=== PATIENT | male | born 1955 | race Caucasian/White ===

== ENCOUNTER → 2017-07-07 | Outpatient (CLI) | payer OTHER ==
--- NOTE | 2017-07-07 14:24 | MRI ---
MRI pelvis without contrast INDICATION: Thigh pain x1 month TECHNIQUE: Noncontrast MR imaging pelvis FINDINGS: Heterogeneous nodular appearing prostate gland. Mild bladder wall trabeculation. Multilevel degenerative disc disease and spondylosis lower lumbar spine. Mild osteoarthrosis of the hips. No osteonecrosis or fracture noted. Signal artifact is noted over both hips. Small area of high signal in the lesser trochanter left hip nonaggressive in appearance possibly small nonaggressive fibro-osseous bone lesion or small hemangioma. Nonspecific appearance. Degenerative labral changes in both hips. Moderate edema between the left greater trochanteric bursa and the iliotibial tract indicating friction edema/bursitis. Minimal interstitial fissuring and tendinopathy of the bilateral proximal hamstring tendons without rupture or distal retraction. IMPRESSION: No fracture or focal destructive lesion. Small nonaggressive appearing bone lesion in the left lesser trochanter Left greater trochanteric bursal edema extending to the iliotibial tract Bilateral proximal hamstring tendinopathy without ivette rupture or distal retraction Degenerative disc disease and spondylosis lower lumbar spine Electronically signed by: Tawanda Ashby MD 07/07/2017 2:23 PM [facility]
--- NOTE | 2017-07-07 14:29 | MRI ---
MRI left thigh without contrast INDICATION: Thigh strain myofascial and tendon injury TECHNIQUE: Noncontrast MR imaging left thigh FINDINGS: No mass or drainable fluid collection noted. There is motion degradation limiting fine detail. The study is diagnostic however. Scattered fatty marbling of the muscle bellies in the thigh. No definitive focal mass or Inflammation. No tendon rupture. Visualized portions sciatic nerve are unremarkable. IMPRESSION: No acute derangement left thigh Electronically signed by: Tawanda Ashby MD 07/07/2017 2:28 PM [employer]
== END ==
LOC: MRI 08:05
PROVIDERS: ATTEND Orthopaedic Surgery
DX: S76.912D Strain of unspecified muscles, fascia and tendons at thigh level, left thigh, subsequent encounter (principal); M25.552 Pain in left hip

== ENCOUNTER → 2017-07-09 | Outpatient (CLI) | payer OTHER | LOC: LAB.O 10:08 | PROVIDERS: ATTEND Orthopaedic Surgery | DX: S76.912D Strain of unspecified muscles, fascia and tendons at thigh level, left thigh, subsequent encounter (principal) ==

== ENCOUNTER → 2017-08-13 | Outpatient (CLI) | payer OTHER | LOC: GMAJ 10:32 | PROVIDERS: ATTEND Family Medicine | DX: Z12.5 Encounter for screening for malignant neoplasm of prostate (principal); I10 Essential (primary) hypertension ==

== ENCOUNTER → 2018-03-29 | Outpatient (CLI) | payer OTHER | LOC: SL 19:15 | PROVIDERS: ATTEND Family Medicine | DX: G47.33 Obstructive sleep apnea (adult) (pediatric) (principal); I10 Essential (primary) hypertension ==

== ENCOUNTER 2020-02-25 08:09 | Emergency (ER) | payer MEDICARE, OTHER ==
--- NOTE | 2020-02-25 08:41 | RAD ---
EXAM DESCRIPTION: Hand,Right 3 Views (accession [id number]), Wrist,Right 3 Views (accession [id number]) CLINICAL HISTORY: 64 years Male thenar pain,fall COMPARISON: None TECHNIQUE: AP, lateral and oblique views of the right hand as well as AP, oblique and lateral views of the right wrist are obtained. FINDINGS: OSSEOUS: There is mild deformity of the proximal first metacarpal bone consistent with a mildly impacted fracture with some associated soft tissue swelling.. There is no evidence of subluxation or dislocation. The joint spaces are preserved. Mild marginal osteophytosis noted in the DIP joints, interphalangeal joint of the thumb and first CMC joint consistent with multifocal mild primary osteoarthritis There is no evidence of marginal erosive changes to suggest an inflammatory arthritis. SOFT TISSUE: There is mild focal soft tissue swelling along the dorsum of the hand along the proximal metacarpal region and wrist. No evidence of significant soft tissue calcifications. No radiopaque foreign bodies. IMPRESSION: There is mild deformity of the proximal first metacarpal bone consistent with a mildly impacted fracture. Remainder of findings as described above. Electronically signed by: Kira Rainey MD 02/25/2020 8:39 AM CDT
--- NOTE | 2020-02-25 08:41 | RAD ---
EXAM DESCRIPTION: Hand,Right 3 Views (accession [id number]), Wrist,Right 3 Views (accession [id number]) CLINICAL HISTORY: 64 years Male thenar pain,fall COMPARISON: None TECHNIQUE: AP, lateral and oblique views of the right hand as well as AP, oblique and lateral views of the right wrist are obtained. FINDINGS: OSSEOUS: There is mild deformity of the proximal first metacarpal bone consistent with a mildly impacted fracture with some associated soft tissue swelling.. There is no evidence of subluxation or dislocation. The joint spaces are preserved. Mild marginal osteophytosis noted in the DIP joints, interphalangeal joint of the thumb and first CMC joint consistent with multifocal mild primary osteoarthritis There is no evidence of marginal erosive changes to suggest an inflammatory arthritis. SOFT TISSUE: There is mild focal soft tissue swelling along the dorsum of the hand along the proximal metacarpal region and wrist. No evidence of significant soft tissue calcifications. No radiopaque foreign bodies. IMPRESSION: There is mild deformity of the proximal first metacarpal bone consistent with a mildly impacted fracture. Remainder of findings as described above. Electronically signed by: Kira Rainey MD 02/25/2020 8:39 AM CDT
--- NOTE | 2020-02-25 08:47 | ED.PDOC ---
History of Present Illness - General Chief Complaint: Trauma Stated Complaint: R hand/thumb injury r/t fall on outstretched arm Time Seen by Provider: 02/25/20 08:14 - History of Present Illness Initial Comments: 64 yo RHD male was walking in dark last night, misstep and fell forward into metal wall. FOOSH, type mechanism. Occurred 11 hours ago. Comes in with thenar pain. no significant numbness or tingling. denies any other injuries, did not hit head, no loc. denies any blood thinners. states pain is 4/10 Allergies/Adverse Reactions: Allergies NO KNOWN ALLERGY Allergy (Verified 02/25/20 08:28) Home Medications: Ambulatory Orders Lisinopril & Hydrochlorothiazi [Zestoretic 20-25 mg] 1 tab PO DAILY 03/08/14 Review of Systems - Review of Systems Constitutional: Denies: chills, fever EENTM: Denies: blurred vision, double vision Respiratory: Denies: cough, short of breath Cardiology: Denies: chest pain, palpitations Gastrointestinal/Abdominal: Denies: abdominal pain, nausea, vomiting Genitourinary: Denies: frequency Skin: Denies: change in color, rash Neurological: Denies: headache, numbness, paresthesia, tingling, tremors, weakness Endocrine: Denies: unexplained weight loss Hematologic/Lymphatic: Denies: easy bleeding, easy bruising Past Medical History (General) - Patient Medical History Hx Seizures: No Hx Stroke: No Hx Asthma: No Hx of COPD: No Hx Cardiac Disorders: No Hx Congestive Heart Failure: No Hx Pacemaker: No Hx Hypertension: Yes Hx Diabetes: No Hx Cancer: No Hx of HIV: No Hx Hepatitis C: No Hx MRSA: No Surgical History: other - Vaccination History Hx Tetanus, Diphtheria Vaccination: No Hx Influenza Vaccination: Yes Hx Pneumococcal Vaccination: No - Social History Hx Tobacco Use: No Hx Chewing Tobacco Use: No Hx Alcohol Use: Yes Hx Substance Use: No Hx Substance Use Treatment: No Hx Depression: No Hx Physical Abuse: No Hx Emotional Abuse: No Hx Suspected Abuse: No - Female History Patient is a Female of Child Bearing Age (10 -59 yrs old): No Patient : No Family Medical History - Family History Father Living Status: Hx Family Asthma: Yes Hx Family Hypertension: Yes Hx Family Cancer: Yes Hx Family;Other: mother had lung cancer dad had copd Mother Living Status: Hx Family Cancer: Yes Physical Exam - Physical Exam General Appearance: Alert, Comfortable, No apparent distress, Well Developed, Well Groomed, Well Hydrated, Well Nourished Neck: non-tender, full range of motion, supple, normal inspection Cardiovascular/Respiratory: regular rate, rhythm, no M/R/G, normal peripheral pulses, normal breath sounds Abdominal Exam: non-tender, no organomegaly Back Exam: normal inspection, no CVA tenderness, no vertebral tenderness Shoulder Exam: normal inspection, non-tender, no evidence of injury, normal ROM Elbow/Forearm Exam: normal inspection, non-tender, no evidence of injury, normal ROM Wrist Exam: normal inspection, non-tender, no evidence of injury, normal ROM Hand Exam: swelling - thenar tenderness, Neuro/Tendon: normal sensation, normal motor functions, normal tendon functions, no evidence tendon injury Mental Status: alert, oriented x 3 Skin Exam: normal color, warm/dry Comments: Symmetrically palpable radial and ulnar pulses. Capillary refill <2 seconds to all digits. Intact sensation to light touch of the radial, median and ulnar nerves demonstrated by testing in the dorsal web space of the thumb, the distal palmar aspect of the index finger, and the lateral surface of the fifth finger. 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 move thumb fully through opposition, abduction and flexion, pain with movement. No snuffbox tenderness. Progress - Progress Progress: 02/25/20 08:53 partial ddx: hand/wrist sprain, carpal dislocation/fracture, MCP fracture. xray shows base of 1st MCP impacted fracture, soft tissue swelling. A thumb spica splint placed. 02/25/20 08:54 The data reviewed when caring for this patient included: nurse notes etc. The history and assessments from nurses notes were reviewed and considered, and the patient's home medication list was also reviewed and considered. My assessment and the results of testing completed here in the ED were discussed with the patient. All questions were answered, and he express understanding of my assessment and the plan. He has been instructed to return if their symptoms worsen, and have been asked to follow up with their primary care physician and orthopedics to recheck today's presenting complaint. return precautions given. Carmen Ford DO #[id number] Departure - Departure Clinical Impression: Metacarpal bone fracture Qualifiers: Encounter type: initial encounter Metacarpal bone: first Fracture type: closed Metacarpal location: base Fracture morphology: unspecified fracture morphology Fracture alignment: nondisplaced Laterality: right Qualified Code(s): S62.234A - Other nondisplaced fracture of base of first metacarpal bone, right hand, initial encounter for closed fracture Time of Disposition: 08:46 Disposition: Discharge to Home or Self Care Departure Forms: ED Discharge - Pt. Copy, Patient Portal Self Enrollment Instructions: DI for Trauma, Hand Fracture (DC), Splint Care Referrals: Elia Menchaca MD [Primary Care Provider] - 1-2 Weeks Colton Spring MD [Active Staff] - 1 Week Home Medications: Ambulatory Orders Lisinopril & Hydrochlorothiazi [Zestoretic 20-25 mg] 1 tab PO DAILY 03/08/14
[2020-02-25 09:03] VITALS: BP 146/74; TEMP 96.6; O2SAT 92
== END 2020-02-25 09:01 | disposition home or self-care (01) ==
LOC: ER 08:09
DX: S62.234A Other nondisplaced fracture of base of first metacarpal bone, right hand, initial encounter for closed fracture (principal); I10 Essential (primary) hypertension; W01.198A Fall on same level from slipping, tripping and stumbling with subsequent striking against other object, initial encounter; Y93.01 Activity, walking, marching and hiking; Y92.9 Unspecified place or not applicable

== ENCOUNTER → 2020-03-04 | Outpatient (CLI) | payer MEDICARE, OTHER ==
--- NOTE | 2020-03-04 13:31 | RAD ---
EXAM DESCRIPTION: Hand,Right 3 Views CLINICAL HISTORY: 64 years Male, HAND PAIN RIGHT COMPARISON: February 25, 2020 Findings: 3 view(s)/radiograph(s) Similar alignment of the right hand first metacarpal base fracture. No significant interval healing identified. Osteopenia. No new fracture. No dislocation. Similar degenerative changes. IMPRESSION: Similar alignment of the right first metacarpal base fracture. Electronically signed by: Romulo Ho MD 03/04/2020 1:29 PM CDT
== END ==
LOC: RAD 09:54
PROVIDERS: ATTEND Orthopaedic Surgery
DX: S62.234D Other nondisplaced fracture of base of first metacarpal bone, right hand, subsequent encounter for fracture with routine healing (principal)

== ENCOUNTER → 2020-03-14 | Outpatient (CLI) | payer MEDICARE, OTHER ==
--- NOTE | 2020-03-14 17:21 | RAD ---
EXAM DESCRIPTION: Hand,Right 3 Views CLINICAL HISTORY: CLOSED FRACTURE OF METACARPAL BONE RIGHT COMPARISON: 04 March 2020 TECHNIQUE: 3 views right FINDINGS: Distal interphalangeal joint arthritis is observed throughout the hand. Mild degenerative changes are observed in the metacarpal carpal articulation of the first digit. A fracture of the base of the first medical carpal is observed. Alignment is unchanged from the previous exam. No new injury is detected. No significant callus formation is yet evident. IMPRESSION: A fracture of the base of the first metacarpal is again noted. No significant interval change is seen. Electronically signed by: John Crawley MD 03/14/2020 5:20 PM CDT
== END ==
LOC: RAD 08:06
PROVIDERS: ATTEND Orthopaedic Surgery
DX: S62.234D Other nondisplaced fracture of base of first metacarpal bone, right hand, subsequent encounter for fracture with routine healing (principal)

== ENCOUNTER → 2020-04-04 | Outpatient (CLI) | payer MEDICARE, OTHER ==
--- NOTE | 2020-04-05 08:11 | RAD ---
EXAM DESCRIPTION: Hand,Right 3 Views CLINICAL HISTORY: CLOSED FRACTURE OF METACARPAL BONE COMPARISON: March 14, 2020 IMPRESSION: 3 views of the right hand shows diffuse osteopenia the osseous structures. Minimally displaced fracture at the base of the first metacarpal is again seen with increased periosteal reaction and mild callus formation compatible with healing fracture. Fracture does not obviously extend to the articular surface. No significant angulation of the fracture fragments is seen. Mild narrowing of the interphalangeal and metacarpophalangeal joints is seen with minimal joint line osteophytes compatible with mild osteoarthritic changes. Electronically signed by: Kai Herrera MD 04/05/2020 8:09 AM [facility]
== END ==
LOC: RAD 08:59
PROVIDERS: ATTEND Orthopaedic Surgery
DX: S62.231D Other displaced fracture of base of first metacarpal bone, right hand, subsequent encounter for fracture with routine healing (principal); M24.849 Other specific joint derangements of unspecified hand, not elsewhere classified; M25.841 Other specified joint disorders, right hand; M25.741 Osteophyte, right hand

== ENCOUNTER → 2020-05-03 | Outpatient (CLI) | payer MEDICARE, OTHER ==
--- NOTE | 2020-05-04 11:10 | RAD ---
EXAM: Hand,Right 3 Views INDICATION: 64 years Male, closed fracture of metacarpal bone COMPARISON: 3 views of the right hand 04/04/2020, 03/14/2020, and 03/04/2020 FINDINGS: 3 views of the right hand were performed. Continued progressive changes of healing at a minimally displaced fracture at the base of the first metacarpal. Increasing callus formation at the site of fracture when compared to the prior study of 04/04/2020. Alignment of the fracture appears stable from the prior examination. Note is made that on the AP view, the horizontal fracture line is slightly more apparent than on the prior study. Scattered degenerative changes are again seen in the hand. IMPRESSION: Continued progression of healing at a minimally displaced fracture of the right hand first metacarpal base. Note is made that lucency at the fracture line on the AP view is slightly more conspicuous than on the prior study. Attention on follow-up examination. Electronically signed by: Rochelle Cowan MD 05/04/2020 11:08 AM [facility]
== END ==
LOC: RAD 08:53
PROVIDERS: ATTEND Orthopaedic Surgery
DX: S62.201D Unspecified fracture of first metacarpal bone, right hand, subsequent encounter for fracture with routine healing (principal)

== ENCOUNTER → 2020-05-21 | Outpatient (CLI) | payer MEDICARE, OTHER | LOC: GMAJ 10:25 | PROVIDERS: ATTEND Family Medicine | DX: Z12.5 Encounter for screening for malignant neoplasm of prostate (principal) ==